=== PATIENT | male | born 1965 | race Hispanic/Latino ===

== ENCOUNTER → 2018-09-29 | Day surgery (SDC) | payer BC ==
[2018-09-27 17:35] LABS: BASOPHILS % 0.4 % (0.0-1.0); EOSINOPHILS # (AUTO) 0.4 (0.0-0.4); EOSINOPHILS % 4.8 % (0.0-6.0); HEMATOCRIT 41.9 % (38.2-49.6); HEMOGLOBIN 13.8 g/dL (14.0-18.0); LYMPHOCYTES # (AUTO) 2.8 (1.0-3.2); MEAN CORPUSCULAR HGB CONC 32.9 g/dL (31-35); MONOCYTES # (AUTO) 0.7 (0.2-0.8); MONOCYTES % 9.3 % (4.4-11.3); NEUTROPHILS # (AUTO) 3.4 (2.1-6.9); NEUTROPHILS % 47.2 % (38.7-80.0); PLATELET COUNT 263 x10e3/uL (140-360); RED BLOOD COUNT 4.93 x10e6/uL (4.3-5.7); RED CELL DISTRIBUTION WIDTH 13.6 % (11.7-14.4)
[2018-09-27 17:59] LABS: ALANINE AMINOTRANSFERASE 39 IU/L (0-55); ALBUMIN 3.8 g/dL (3.5-5.0); ALBUMIN/GLOBULIN RATIO 1.3 (0.8-2.0); ALKALINE PHOSPHATASE 52 IU/L (40-150); BLOOD UREA NITROGEN 14 mg/dL (7-26); BUN/CREATININE RATIO 16 (6-25); CALCIUM 9.3 mg/dL (8.4-10.2); CARBON DIOXIDE 28 mmol/L (22-29); CHLORIDE 102 mmol/L (98-107); CHOL/HDL RATIO 2.6 (3.9-4.7); CHOLESTEROL 85 MD/DL (0-199); CREATININE, SERUM 0.85 mg/dL (0.72-1.25); EST GLOMERULAR FILTRATION RATE > 60 ML/MIN (60-); GLUCOSE 100 mg/dL (74-118); HDL CHOLESTEROL 33 MG/DL (40-60); LDL CHOLESTEROL 32 MG/DL (60-130); SODIUM 140 mmol/L (136-145); TRIGLYCERIDES 101 MG/DL (0-149)
[2018-09-27 18:08] LABS: INR 0.94; PROTHROMBIN TIME 13.4 seconds (11.9-14.5)
[~2018-09-29] VITALS: Ht 167.6 cm; Wt 109.3 kg
[2018-09-29] VITALS (10 sets, daily range): BP systolic 137–170; BP diastolic 60–92
[~2018-09-29] MED LIST: ALPRAZOLAM 0.5 MG TAB ONE; ATORVASTATIN CA20 MG PO; CARVEDILOL12.5 MG PO; DIOVAN HCT 1601 EAC1 PO; DIPHENHYDRAMINE HCL 25 MG CAP ONE; FENTANYL CITRATE/PF 100MCG/2 ML INJ ONE; FISH OIL PO; HEPARIN SOD (PORCINE) 1000 UNIT/ML 30ML ONE; HEPARIN SOD/SOD CHLORIDE 2,000 ML ONE; IOPAMIDOL 370 MG/ML 200 ML INFUS..BTL INJ ONE; LIDOCAINE HCL 1% LOCAL INJ 20 ML VIAL ONE; MELOXICAM7.5 MG PO; METFORMIN HCL500 MG PO; MIDAZOLAM HCL 2 MG/2 ML VIAL ONE; NITROGLYCERIN/D5W 200 MCG/ML 250 ML ONE; SODIUM CHLORIDE 0.9% 1000ML 1,000 ML ONE; VERAPAMIL HCL 2.5 MG/ML 2 ML VIAL ONE
--- NOTE | 2018-09-29 09:45 | NUR ---
0917 Received pt to [facility][id number] Carney RN report received.. C ,no fix clear vessels by Dr Merino. Back to baseline orientation, PEERLA, Respirations shallow and regular. Sat 92% RA .Dr Merino at bedside spoke with pt and son Kristal . Explained POC and copies signed and given to son as well as diagram. Abdomen soft and non tender denies necessity to defecate or urinate. Bilateral PPx4 present left iv 0.9 Ns 500cc to infuse in at kvo till infused. Rt TR band approach site w/o s/s hematoma or bleeding band intact .Radial pulse strong. To titrate TR band at 1040am and DC time goal 11:40am. Ordered diabetic tray finger foods.
--- NOTE | 2018-09-29 11:30 | NUR ---
1130 Dc home post successful TR band titration. Tegederm with 2x2 gauze and coban , arm splint on. Iv dc'd no s/s infiltration. 2x2 gauze with coban. Pt and significant other informed of dc instructions aware of importance of followup care Has jam of dc papers. To care per [facility] escort [employer] via w/c,voids and tolerating po intake.Has driver wheelchair. Stable vs and ekg. Denies CP or SOB
--- NOTE | 2018-09-29 14:34 | Operative Report ---
DATE OF PROCEDURE: September 29, 2018 PROCEDURES PERFORMED 1. Selective coronary angiography times 2. 2. Left heart catheterization. PREOPERATIVE DIAGNOSIS: Abnormal stress test. POSTOPERATIVE DIAGNOSIS: Nonobstructive coronary artery disease. ESTIMATED BLOOD LOSS: Less than 20 mL. SPECIMENS REMOVED: None. PROCEDURE DETAILS: After informed consent was obtained, the patient was brought into the cardiac catheterization laboratory in the fasting, nonsedated state. Bilateral groins and right wrist were prepped and draped in the usual sterile fashion. Two percent lidocaine was infiltrated over the right anterior wrist for local anesthesia. Using the micropuncture needle, the right radial artery was accessed via the modified Seldinger technique. A 6-[place] sheath was placed. Diagnostic coronary angiography was performed with a and JR4 catheters. The same catheter was used to enter the left ventricle and hemodynamic parameters were obtained. The patient tolerated the procedure well with no immediate complications. Was forwarded back to his room in stable condition. Hemostasis was achieved via TR band. PROCEDURE FINDINGS 1. Left main coronary artery is patent. 2. Left anterior descending artery is patent with mild luminal irregularities. 3. Left circumflex coronary artery has mild luminal irregularities and provides 2 obtuse marginal vessels. 4. Right coronary artery is a dominant vessel and provides posterolateral and the posterior descending coronary artery. 5. Left ventricular end-diastolic pressure is 16 mmHg with no aortic valve gradient present upon pullback. RECOMMENDATIONS: The patient has significant risk factors for coronary artery disease and abnormal stress test. However, was found to have no obstructive coronary artery disease today. Continue aggressive medical management. Job#: [id number] PR
== END | disposition home or self-care (01) ==
LOC: CATH LAB 07:22
PROVIDERS: ATTEND Internal Medicine Interventional Cardiology
DX: I25.118 Atherosclerotic heart disease of native coronary artery with other forms of angina pectoris (principal); R94.39 Abnormal result of other cardiovascular function study; I10 Essential (primary) hypertension; E11.9 Type 2 diabetes mellitus without complications; E78.00 Pure hypercholesterolemia, unspecified; Z01.812 Encounter for preprocedural laboratory examination; Z79.84 Long term (current) use of oral hypoglycemic drugs; Z68.41 Body mass index [BMI] 40.0-44.9, adult; Z82.49 Family history of ischemic heart disease and other diseases of the circulatory system
CPT/HCPCS: 36415; 80053; 80061; 85025; 85610; 93458; C1887 ×2; J1644; J2001; J2250; J7030; Q9967

== ENCOUNTER → 2022-08-05 | Day surgery (SDC) | payer BC ==
[2022-07-31 16:33] LABS: BASOPHILS % 0.5 % (0.0-1.0); EOSINOPHILS # (AUTO) 0.2 (0.0-0.4); EOSINOPHILS % 3.8 % (0.0-6.0); HEMATOCRIT 44.1 % (38.2-49.6); LYMPHOCYTES # (AUTO) 2.5 (1.0-3.2); LYMPHOCYTES % 45.8 % (18.0-39.1); MEAN CORPUSCULAR HEMOGLOBIN 28.1 pg (28-32); MEAN CORPUSCULAR HGB CONC 31.7 g/dL (31-35); MEAN CORPUSCULAR VOLUME 88.6 fL (81-99); MONOCYTES # (AUTO) 0.6 (0.2-0.8); MONOCYTES % 11.7 % (4.4-11.3); NEUTROPHILS # (AUTO) 2.1 (2.1-6.9); PLATELET COUNT 272 x10e3/uL (140-360); RED BLOOD COUNT 4.98 x10e6/uL (4.3-5.7); RED CELL DISTRIBUTION WIDTH 12.9 % (11.7-14.4)
[2022-07-31 16:54] LABS: ALBUMIN 4.3 g/dL (3.5-5.0); ALBUMIN/GLOBULIN RATIO 1.3 (0.8-2.0); CALCIUM 9.6 mg/dL (8.4-10.2); CREATININE, SERUM 1.16 mg/dL (0.72-1.25)
[~2022-08-05] MED LIST changes: -ALPRAZOLAM 0.5 MG TAB ONE; +ATACAND HCT 321 EAC1 PO; +BUPIVACAINE HCL 0.5% INJ 30 ML VIAL INJ ONE; -DIPHENHYDRAMINE HCL 25 MG CAP ONE; +EPHEDRINE SULFATE INJ 50 MG/ML VIAL ONE; +GLYCOPYRROLATE INJ 0.2 MG/ML VIAL ONE; -HEPARIN SOD (PORCINE) 1000 UNIT/ML 30ML ONE; -HEPARIN SOD/SOD CHLORIDE 2,000 ML ONE; +HYDROCODON-ACE1 EA15 PO; -IOPAMIDOL 370 MG/ML 200 ML INFUS..BTL INJ ONE; +KETOROLAC TROMETHAMINE 30 MG/ML VIAL ONE; -LIDOCAINE HCL 1% LOCAL INJ 20 ML VIAL ONE; +LIDOCAINE HCL 2% LOCAL INJ 5 ML SDV VIAL INJ ONE; +NAPROXEN250 MG PO; +NEOSTIGMINE 1 MG/ML 10ML VIAL ONE; +NEURONTIN100 MG PO; -NITROGLYCERIN/D5W 200 MCG/ML 250 ML ONE; +ONDANSETRON HCL INJ 2MG/ML 2ML 2 MG/ML VIAL ONE; +POVIDONE IODINE 0.05% 0.05 % ML PO ONE; +PROPOFOL IV EMULSION 10 MG/ML 20 ML VIAL ONE; +ROCURONIUM BROMIDE 10 MG/ML 5ML VIAL IV ONE; +SEVOFLURANE INHAL SOLN 250 ML PEN BTL ONE; +SIMVASTATIN20 MG PO; -SODIUM CHLORIDE 0.9% 1000ML 1,000 ML ONE; +SUCCINYLCHOLINE CHLORIDE 20 MG/ML 10ML VIAL ONE; +ULTRAM50 MG PO; -VERAPAMIL HCL 2.5 MG/ML 2 ML VIAL ONE
[2022-08-05 16:20] VITALS: BP 122/80
== END | disposition home or self-care (01) ==
LOC: OR 10:42
PROVIDERS: ATTEND Urology
DX: K40.90 Unilateral inguinal hernia, without obstruction or gangrene, not specified as recurrent (principal); D17.6 Benign lipomatous neoplasm of spermatic cord; E65 Localized adiposity; E11.9 Type 2 diabetes mellitus without complications; E78.00 Pure hypercholesterolemia, unspecified; I51.9 Heart disease, unspecified; Z88.8 Allergy status to other drugs, medicaments and biological substances; Z88.1 Allergy status to other antibiotic agents; Z01.810 Encounter for preprocedural cardiovascular examination; Z01.812 Encounter for preprocedural laboratory examination; Z79.84 Long term (current) use of oral hypoglycemic drugs; Z79.899 Other long term (current) drug therapy
CPT/HCPCS: 36415 ×2; 49505; 80053; 82948; 85025; 87086; 88304; 93005; J0330; J0690; J1885; J2001; J2405; J2704; J2710; J2250; J3010